=== PATIENT | female | born 1975 | race Caucasian/White ===

== ENCOUNTER 2020-08-13 07:13 | Outpatient (CLI) | payer OTHER, SELFPAY ==
[2020-08-13 07:49] LABS: Basophils Absolute Auto 0.1 K/mm3 (0.0-0.1); Eosinophils Absolute Auto 0.1 K/mm3 (0-0.3); Eosinophils Percent Auto 1.6 % (0-4.4); Hematocrit 36.8 % (37.0-47.0); Hemoglobin 12.1 g/dL (12.0-15.0); Immature Granulocyte Absolute 0.02 K/mm3 (0.00-0.031); Immature Granulocyte Percent A 0.3 % (0-0.5); Lymphocytes Absolute Auto 2.49 K/mm3 (0.9-3.2); Lymphocytes Percent Auto 31.2 % (18.3-44.2); Mean Corpuscular HGB Conc 32.9 g/dl (32-36); Mean Corpuscular Hemoglobin 31.1 pg (26-34); Mean Corpuscular Volume 94.6 fl (80-100); Mean Platelet Volume 9.2 fl (7.4-10.4); Monocytes Absolute Auto 0.5 K/mm3 (0.1-0.6); Monocytes Percent Auto 6.3 % (2.6-8.5); Neutrophils Absolute Auto 4.8 K/mm3 (1.3-6.7); Neutrophils Percent Auto 59.6 % (45.5-73.1); Platelet Count Result 383 k/mm3 (150-375); Red Blood Count 3.89 M/mm3 (4.2-5.4)
[2020-08-13 08:03] LABS: Alanine Aminotransferase 24 U/L (4-35); Albumin Level 4.6 g/dL (3.5-5.1); Alkaline Phosphatase 85 U/L (38-126); Anion Gap 8 mmol/L (8-16); Aspartate Amino Transferase 36 U/L (14-36); Bilirubin,Total 0.6 mg/dL (0.2-1.3); Blood Urea Nitrogen 21 mg/dL (7-17); Calcium 9.2 mg/dL (8.4-10.2); Carbon Dioxide 28 mmol/L (22-30); Chloride 101 mmol/L (98-107); Cholesterol 178 mg/dL (0-200); Estimated Glomerular Filt Rate > 60; Glucose 89 mg/dL (65-105); HDL Direct 66 mg/dL; Potassium 4.1 mmol/L (3.4-5.0); Sodium 137 mmol/L (137-145); Triglycerides 78 mg/dL (<150)
[2020-08-13 08:31] LABS: LDL Cholesterol Direct 87 mg/dL
[2020-08-13 09:41] LABS: Vitamin D 25 Hydroxy 44.3 ng/mL
== END 2020-08-13 07:14 | disposition home or self-care (01) ==
PROVIDERS: PCP Internal Medicine; Visit Provider Internal Medicine
DX: I10 Essential (primary) hypertension (principal); E78.49 Other hyperlipidemia; E53.8 Deficiency of other specified B group vitamins; D50.8 Other iron deficiency anemias
CPT/HCPCS: 36415; 80053; 80061; 82306; 82728; 84443; 85025

== ENCOUNTER 2021-05-04 15:08 | Outpatient (CLI) | payer OTHER, SELFPAY ==
--- NOTE | ~2021-05-04 | US_ITS ---
EXAMINATION: US pelvic complete w TV DATE: 05/04/2021 15:52 INDICATION: Pelvic pain Comparison:No prior studies for comparison. TECHNIQUE: Multiple transabdominal and endovaginal sonographic images of the pelvis performed. FINDINGS: The uterus measures 9 x 3.4 x 5.5 cm. There is an IUD in the endometrium. There is a small anterior uterine fibroid measuring 5 mm. The endometrial complex measures 6 mm. The right ovary measures 2.5 x 2 x 1.8 cm and the left ovary measures 2.6 x 2.1 x 1.8 cm. There are small follicles in each ovary. Normal doppler signal in both ovaries. There is trace free fluid in the pelvis. There are no abnormal masses seen on either side. IMPRESSION: 1. Small 5 mm uterine fibroid anteriorly. Reviewed, dictated and finalized at location A.
--- NOTE | ~2021-05-04 | MM_ITS ---
EXAMINATION: MM screening ana BI w [place] HISTORY: Screening mammogram, family history of breast cancer in her mother. TECHNIQUE: Craniocaudal and mediolateral oblique 3-D tomosynthesis images were obtained and synthetic 2-D images were generated. CAD analysis was submitted and interpreted. COMPARISON: No prior mammogram is available for comparison at this institution. BREAST PARENCHYMAL COMPOSITION: There are scattered areas of fibroglandular density. FINDINGS: There is no evidence of suspicious mass, calcification, or architectural distortion to sugg est malignancy in either breast. IMPRESSION: 1. No mammographic evidence of malignancy. 2. Recommend routine screening mammography in one year. BI-RADS Category 1: Negative Reviewed, dictated and finalized at location A.
== END 2021-05-04 15:09 | disposition home or self-care (01) ==
LOC: ANHIMG 15:09
PROVIDERS: PCP Internal Medicine; Visit Provider Obstetrics & Gynecology
DX: Z12.31 Encounter for screening mammogram for malignant neoplasm of breast (principal); R10.2 Pelvic and perineal pain; D25.9 Leiomyoma of uterus, unspecified
CPT/HCPCS: 76830; 76856; 77063; 77067

== ENCOUNTER 2021-06-02 10:20 | Outpatient (CLI) | payer OTHER, SELFPAY ==
--- NOTE | 2021-06-02 10:30 | ECG_ITS ---
Measurements Intervals [place] Rate: 77 P: 74 OR: 171 QRS: 77 QRSD: 83 T: 50 QT: 380 QTc: 431 Interpretive Statements SINUS RHYTHM POSSIBLE LEFT ATRIAL ENLARGEMENT DELAYED PRECORDIAL R/S TRANSITION BORDERLINE ECG Electronically Signed On 06-02-2021 12:00:44 CDT by Constantine Saavedra D.O.
== END 2021-06-02 10:21 | disposition home or self-care (01) ==
LOC: ANHSURGERY 10:26
PROVIDERS: PCP Internal Medicine; Visit Provider Obstetrics & Gynecology
DX: I10 Essential (primary) hypertension (principal); Z01.818 Encounter for other preprocedural examination; R94.31 Abnormal electrocardiogram [ECG] [EKG]
CPT/HCPCS: 93005

== ENCOUNTER → 2021-06-03 01:41 | Outpatient (CLI) | payer OTHER, SELFPAY ==
[2021-06-03 19:11] LABS: SARS-CoV-2 RNA PCR Negative
== END ==
PROVIDERS: PCP Internal Medicine; Visit Provider Obstetrics & Gynecology
DX: Z01.812 Encounter for preprocedural laboratory examination (principal); Z20.822 Contact with and (suspected) exposure to COVID-19
CPT/HCPCS: C9803; U0003; U0005

== ENCOUNTER 2021-06-06 01:43 | Day surgery (SDC) | payer OTHER, SELFPAY ==
[2021-06-01 14:21] VITALS: BMI 33.0
--- NOTE | 2021-06-03 16:22 | PM.IMHP ---
H&P: HPI History of Present Illness Date/Time: 06/03/21 16:22 She was taken off Q3 month cycling OCP due to HTN. She tried loloestrin and POP and had frequent irregular bleeding. She has occasional spotting with Mirena IUD but has cystic acne, and occasional BLQ sharp shooting pains. She is here for ablation and tubal ligation Chief Complaint: menorrhagia, desires sterilization Review of Systems Review of Systems: All systems reviewed & are unremarkable except as noted in HPI and below PMFSH Past Medical History Medical History Anemia Hypertension Migraines Seasonal allergies Surgical History Surgical History H/O Spinal surgery Family History Family History Father Hypertension Mother Breast cancer Hypertension Disorder of thyroid Sibling Heart disease Grandparent Breast cancer Social History Social History Smoking status: Never smoker Alcohol intake: current Substance use: never Gender identity (if verbalized by the patient): Female Spiritual care concerns: No Meds Home Medications and Allergies Home Medications Medication Instructions Recorded Confirmed Type amlodipine 2.5 mg tablet 2.5 mg PO DAILY 09/17/20 06/01/21 History dicyclomine 10 mg capsule 10 mg PO TID PRN #90 cap 09/17/20 06/01/21 Rx Saccharomyces boulardii 250 mg 250 mg PO BID 04/22/21 06/01/21 History capsule cetirizine 10 mg tablet 10 mg PO DAILY 04/22/21 06/01/21 History fluticasone furoate 50 50 mcg INHALATION DAILY 04/22/21 06/01/21 History mcg/actuation blister powder for inhalation levonorgestrel 20 mcg/24 hours (6 1 device INTRAUTERINE ONCE 04/22/21 06/01/21 History yrs) 52 mg intrauterine device multivitamin 1 tablet PO DAILY 04/22/21 06/01/21 History rizatriptan 5 mg tablet See Rx Instructions PO .COMPLEX 04/22/21 06/01/21 History escitalopram oxalate 10 mg PO DAILY 06/01/21 06/01/21 History Allergies Allergy/AdvReac Type Severity Reaction Status Date / Time No Known Allergies Allergy Verified 06/01/21 13:53 Exam Const: General: healthy appearing, no acute distress, alert and awake Resp: Auscultation: clear to auscultation bilaterally Cardio: Rate: regular rate Rhythm: regular rhythm GI: Inspection: non-distended GI Palp: Yes Soft to palpation and No Tenderness to palpation present (GI) : Speculum Exam - Cervix: Other cervical findings present (IUD string visible) Bimanual exam- vagina & uterus: normal bimanual exam, uterine size normal, uterine mobility normal, uterine shape normal, non-tender and soft Bimanual Exam- Adnexa, other: normal adnexae, no masses and No adnexal tenderness Extrem: General: no pedal edema and no calf tenderness Psych: Mental Status: mental status grossly normal Assessment and Plan Assessment and plan (1) Menorrhagia: Code(s): N92.0 - Excessive and frequent menstruation with regular cycle Status: Acute Assessment and Plan: She opted and signed consent for D&C, hysteroscopy, and endometrial ablation, removal of Mirena IUD, and laparoscopic bilateral tubal occlusion with Filshie clips after risks, benefits, complications, and alternatives discussed. She expressed understanding and wishes to proceed. (2) Contraceptive management: Code(s): Z30.9 - Encounter for contraceptive management, unspecified Status: Acute
[2021-06-06] VITALS (9 sets, daily range): BP systolic 101–141; BP diastolic 65–77; PULSE 67–86; RESP 12–18; TEMP 36.3–36.7; O2SAT 97–100
--- NOTE | 2021-06-06 07:28 | WPDANESEPPF ---
Anes - Initial Pre Proc Eval Procedure: Operation Date: 06/06/21 13:00 Proposed Procedures p Laparoscopic Bilateral Tubal Sterilization with Filshie Clips, - Cherri Smiely MD s Hysteroscopy, Dilation and Curettage with Maria L Endometrial Ablation - Cherri Smiley MD Date/Time: 06/06/21 07:28 Surgeon: Cherri Smiley MD Pre Op Diagnosis: menorrhaghia,desires sterilization Patient Data Age: 46 Gender: F Height: 1.57 m Weight: 81.81 kg Allergies Allergy/AdvReac Type Severity Reaction Status Date / Time No Known Allergies Allergy Verified 06/06/21 11:30 Home Medications Medication Instructions Recorded Confirmed Type amlodipine 2.5 mg tablet 2.5 mg PO DAILY 09/17/20 06/06/21 History dicyclomine 10 mg capsule 10 mg PO TID PRN #90 cap 09/17/20 06/06/21 Rx Saccharomyces boulardii 250 mg 250 mg PO BID 04/22/21 06/06/21 History capsule cetirizine 10 mg tablet 10 mg PO DAILY 04/22/21 06/06/21 History fluticasone furoate 50 50 mcg INHALATION DAILY 04/22/21 06/06/21 History mcg/actuation blister powder for inhalation levonorgestrel 20 mcg/24 hours (6 1 device INTRAUTERINE ONCE 04/22/21 06/06/21 History yrs) 52 mg intrauterine device multivitamin 1 tablet PO DAILY 04/22/21 06/06/21 History rizatriptan 5 mg tablet See Rx Instructions PO .COMPLEX 04/22/21 06/06/21 History escitalopram oxalate 10 mg PO DAILY 06/01/21 06/06/21 History Patient hx anesthesia problems: none Family hx anesthesia problems: none PMFSH Past Medical History Medical History (Updated 06/06/21 @ 07:29 by Carlos Gonzalez DO) Anemia Anxiety Depression Fibromyalgia Hypertension Migraines Seasonal allergies Surgical History Surgical History (Updated 06/06/21 @ 07:29 by Carlos Gonzalez DO) H/O Spinal surgery cervical fusion Family History Family History Father Hypertension Mother Breast cancer Hypertension Disorder of thyroid Sibling Heart disease Grandparent Breast cancer Social History Social History Smoking status: Never smoker Alcohol intake: current Substance use: never Living arrangements: with family Gender identity (if verbalized by the patient): Female Spiritual care concerns: No Anes - Eval Final PreProcedure Day of Procedure 06/06/21 07:28 Patient weight: obese Heart: regular rate and rhythm Lungs: clear to auscultation and normal air movement Airway: Mallampati scale class II and other (cervical fusion C5-7) Neurological: alert and oriented Last oral intake: >/= 8 hours ASA classification: III Emergent: no Anesthetic plan: proceed Anesthesia type and monitoring: general ETT and standard monitoring Informed Consent: The patient's anesthetic plan and its attendant risks and benefits were discussed with the patient/family/POA. Questions were solicited and answers provided to the satisfaction of the patient/family/POA.
[2021-06-06] MEDS: ACETAMINOPHEN 500 MG TABLET 1000 MG PO (11:34)
[2021-06-06] MEDS: KETOROLAC 15 MG/ML VIAL (*BKC) IV PUSH (11:41)
[2021-06-06] MEDS: LACTATED RINGERS 1,000 ML 30 ML IV CONT (11:41)
--- NOTE | 2021-06-06 12:08 | WPDHPUPDATE1 ---
History and Physical Update Update Date/Time: 06/06/21 12:08 History and Physical has been reviewed, including an updated exam of the patient. There are NO changes in the patient's condition. Risks, benefits, and alternatives have been discussed and questions answered. Patient agrees to proceed with procedure.
--- NOTE | 2021-06-06 12:54 | W.PM.PROC2 ---
Procedure Note - Detailed Date of Procedure 06/06/21 Pre-op Diagnosis menorrhagia,desires sterilization Post-op Diagnosis same Procedure Performed L/s bilateral tubal occlusion with Filshie clips, D&C, hysteroscopy, removal of Mirena IUD, Maria L endometrial ablation Surgeon Cherri Smiley MD Anesthesia general Indications Heavy irregular bleeding, desires sterilization Findings Normal uterus, tubes, ovaries, liver, appendix; normal endometrial cavity with excellent appearing ablation Description of Procedure She was taken to the operating room where general anesthesia was obtained. She was prepared and draped in the normal sterile fashion in the dorsal lithotomy position. Marcaine was injected infraumbilically. A 5 mm skin incision was made in the infraumbilical fold. A 5 mm non bladed trocar was placed with the camera in the trocar under direct visualization into the peritoneal cavity. Insufflation was begun. She was placed in Trendelenburg. An 8 mm incision was made in the midline suprapubic area. An 8 mm trocar was placed under direct visualization into the peritoneal cavity. Inspection of the abdomen and pelvis revealed the findings as noted. The right fallopian tube was identified. A Filshie clip was placed on the mid isthmic portion of the tube, making sure the entire circumference of the tube was contained in the clip. Same procedure was performed on the left fallopian tube. All operative sites were inspected and found to be hemostatic. The pneumoperitoneum was allowed to escape. Both trocars were removed. Both skin incisions were closed using 4 0 Monocryl in subcuticular fashion. Attention was then turned to the vagina. A speculum was placed. The anterior lip of the cervix was grasped with single-tooth tenaculum. The IUD string was easily visible. The string was grasped with a ring forceps. Gentle traction was applied, and the IUD was removed easily intact. The uterus sounded to 8 cm. The cervix was dilated to allow passage of the hysteroscope, which revealed normal intrauterine anatomy. A sharp curettage was performed and the curettings sent to pathology. A 8. Hegar dilator was used to measure the endocervical canal at 3 cm, yielding a entire cavity length of 5 cm. The Maria L device was introduced. The cavity assessment passed on the 1st attempt. The cycle ran for 2 minutes. The Maria L device was removed. A 2nd look was taken with the hysteroscope, which revealed an excellent appearing ablation. The hysteroscope was removed. The tenaculum was removed from the cervix. The left tenaculum site was bleeding slightly. Pressure was held with ring forceps until excellent hemostasis was assured. All instruments were removed from the vagina. She tolerated the procedures well. Sponge, lap, needle, and instrument counts were correct x2. She was taken to the recovery room in stable condition. Estimated Blood Loss 10 Drains No Packing No Pathology yes Complications No immediate complications Condition stable Disposition PACU
[2021-06-06] MEDS: BUPIVACAINE/EPINEPHRINE 0.5% 30 ML VIAL 4 ML INFILTRATE (13:55)
[2021-06-06] MEDS: fentaNYL CITRATE INJ (*CRX) 100 MCG/2 ML VIAL 25 MCG IV PUSH ×6 (14:15→14:53)
--- NOTE | 2021-06-06 14:34 | SUR.PHASEI ---
Simple mask removed at 1430.
[2021-06-06] MEDS: oxyCODONE HCL (*CRX) 5 MG TAB IR PO (15:15)
== END 2021-06-06 15:55 | disposition home or self-care (01) ==
PROVIDERS: PCP Internal Medicine; Visit Provider Obstetrics & Gynecology
PROC: (CPT 58671; principal; 2021-06-06 13:00)
PROC: 0U5B8ZZ Destruction of Endometrium, Via Natural or Artificial Opening Endoscopic (ICD-10-PCS; CPT 58563; 2021-06-06 13:00)
DX: N92.0 Excessive and frequent menstruation with regular cycle (principal); Z30.2 Encounter for sterilization; Z30.432 Encounter for removal of intrauterine contraceptive device; I10 Essential (primary) hypertension; F41.8 Other specified anxiety disorders; Z98.1 Arthrodesis status; E66.9 Obesity, unspecified; Z68.33 Body mass index [BMI] 33.0-33.9, adult
CPT/HCPCS: 58671; 58563; 58301; 88305; A9270; J1885; J2250; J2270; J2405; J2704; J3010; J7030; J7120

== ENCOUNTER 2021-09-19 11:46 | Outpatient (CLI) | payer OTHER, SELFPAY ==
[2021-09-19 12:17] LABS: Basophils Percent Auto 0.6 % (0.2-1.2); Eosinophils Absolute Auto 0.1 K/mm3 (0-0.3); Eosinophils Percent Auto 1.1 % (0-4.4); Hematocrit 34.7 % (37.0-47.0); Hemoglobin 11.5 g/dL (12.0-15.0); Immature Granulocyte Absolute 0.02 K/mm3 (0.00-0.031); Immature Granulocyte Percent A 0.3 % (0-0.5); Lymphocytes Percent Auto 29.8 % (18.3-44.2); Mean Corpuscular HGB Conc 33.1 g/dl (32-36); Mean Corpuscular Hemoglobin 31.5 pg (26-34); Mean Corpuscular Volume 95.1 fl (80-100); Mean Platelet Volume 8.8 fl (7.4-10.4); Monocytes Absolute Auto 0.4 K/mm3 (0.1-0.6); Neutrophils Absolute Auto 4.4 K/mm3 (1.3-6.7); Neutrophils Percent Auto 62.2 % (45.5-73.1); Platelet Count Result 347 k/mm3 (150-375); Red Blood Count 3.65 M/mm3 (4.2-5.4); Red Cell Distribution Width 12.1 % (11.5-14.5); White Blood Count 7.1 K/mm3 (4.5-10.0)
[2021-09-19 14:06] LABS: Alanine Aminotransferase 14 U/L (4-35); Albumin Level 4.5 g/dL (3.5-5.1); Alkaline Phosphatase 94 U/L (38-126); Anion Gap 7 mmol/L (8-16); Aspartate Amino Transferase 26 U/L (14-36); Bilirubin,Total 0.8 mg/dL (0.2-1.3); Blood Urea Nitrogen 16 mg/dL (7-17); Calcium 9.1 mg/dL (8.4-10.2); Carbon Dioxide 28 mmol/L (22-30); Chloride 103 mmol/L (98-107); Cholesterol 231 mg/dL (0-200); Estimated Glomerular Filt Rate > 60; Glucose 95 mg/dL (65-110); HDL Direct 74 mg/dL; Potassium 3.9 mmol/L (3.4-5.0); Sodium 138 mmol/L (137-145); Triglycerides 155 mg/dL (<150)
[2021-09-19 14:18] LABS: LDL Cholesterol Direct 126 mg/dL
== END 2021-09-19 11:47 | disposition home or self-care (01) ==
LOC: ANHLAB 11:50
PROVIDERS: PCP Internal Medicine; Visit Provider Internal Medicine
DX: I10 Essential (primary) hypertension (principal); E78.49 Other hyperlipidemia; D50.8 Other iron deficiency anemias
CPT/HCPCS: 36415; 80053; 80061; 82607; 82728; 84443; 85025

== ENCOUNTER 2022-08-09 10:29 | Outpatient (CLI) | payer OTHER, SELFPAY ==
[2022-08-09 11:10] LABS: Basophils Absolute Auto 0.1 K/mm3 (0.0-0.1); Basophils Percent Auto 0.7 % (0.2-1.2); Eosinophils Absolute Auto 0.1 K/mm3 (0-0.3); Eosinophils Percent Auto 0.7 % (0-4.4); Hematocrit 33.4 % (37.0-47.0); Hemoglobin 10.7 g/dL (12.0-15.0); Immature Granulocyte Absolute 0.02 K/mm3 (0.00-0.031); Immature Granulocyte Percent A 0.2 % (0-0.5); Lymphocytes Absolute Auto 2.55 K/mm3 (0.9-3.2); Lymphocytes Percent Auto 31.4 % (18.3-44.2); Mean Corpuscular Hemoglobin 30.1 pg (26-34); Mean Corpuscular Volume 93.8 fl (80-100); Mean Platelet Volume 8.8 fl (7.4-10.4); Monocytes Absolute Auto 0.5 K/mm3 (0.1-0.6); Monocytes Percent Auto 5.8 % (2.6-8.5); Neutrophils Percent Auto 61.2 % (45.5-73.1); Platelet Count Result 348 k/mm3 (150-375); Red Blood Count 3.56 M/mm3 (4.2-5.4); Red Cell Distribution Width 12.6 % (11.5-14.5); White Blood Count 8.1 K/mm3 (4.5-10.0)
[2022-08-09 11:22] LABS: Alanine Aminotransferase 14 U/L (6-35); Albumin Level 4.4 g/dL (3.5-5.1); Alkaline Phosphatase 96 U/L (38-126); Anion Gap 10 mmol/L (8-16); Aspartate Amino Transferase 23 U/L (14-36); Bilirubin,Total 0.5 mg/dL (0.2-1.3); Blood Urea Nitrogen 14 mg/dL (7-17); Calcium 8.8 mg/dL (8.4-10.2); Carbon Dioxide 24 mmol/L (22-30); Chloride 103 mmol/L (98-107); Estimated Glomerular Filt Rate > 60; Glucose 92 mg/dL (65-110); Potassium 3.9 mmol/L (3.4-5.0); Sodium 137 mmol/L (137-145)
[2022-08-10 14:22] LABS: Cholesterol 184 mg/dL (0-200); HDL Direct 50 mg/dL; Triglycerides 159 mg/dL (<150)
[2022-08-10 14:31] LABS: LDL Cholesterol Direct 109 mg/dL
== END 2022-08-09 10:30 | disposition home or self-care (01) ==
LOC: ANHLAB 10:33
PROVIDERS: PCP Internal Medicine; Visit Provider Internal Medicine
DX: D50.8 Other iron deficiency anemias (principal); E78.49 Other hyperlipidemia
CPT/HCPCS: 36415; 80053; 80061; 82607; 82728; 84443; 85025

== ENCOUNTER 2023-06-14 06:57 | Outpatient (CLI) | payer OTHER, SELFPAY ==
[2023-06-14 07:23] LABS: Basophils Absolute Auto 0.1 K/mm3 (0.0-0.1); Basophils Percent Auto 0.9 % (0.2-1.2); Eosinophils Absolute Auto 0.1 K/mm3 (0-0.3); Eosinophils Percent Auto 1.1 % (0-4.4); Hematocrit 34.8 % (37.0-47.0); Hemoglobin 11.2 g/dL (12.0-15.0); Immature Granulocyte Absolute 0.03 K/mm3 (0.00-0.031); Immature Granulocyte Percent A 0.3 % (0-0.5); Lymphocytes Absolute Auto 2.81 K/mm3 (0.9-3.2); Lymphocytes Percent Auto 31.2 % (18.3-44.2); Mean Corpuscular HGB Conc 32.2 g/dl (32-36); Mean Corpuscular Hemoglobin 29.9 pg (26-34); Mean Platelet Volume 8.8 fl (7.4-10.4); Monocytes Absolute Auto 0.6 K/mm3 (0.1-0.6); Monocytes Percent Auto 6.1 % (2.6-8.5); Neutrophils Absolute Auto 5.4 K/mm3 (1.3-6.7); Neutrophils Percent Auto 60.4 % (45.5-73.1); Platelet Count Result 386 k/mm3 (150-375); Red Blood Count 3.74 M/mm3 (4.2-5.4); Red Cell Distribution Width 12.7 % (11.5-14.5)
[2023-06-14 07:36] LABS: Alanine Aminotransferase 17 U/L (6-35); Albumin Level 4.4 g/dL (3.5-5.1); Alkaline Phosphatase 75 U/L (38-126); Anion Gap 10 mmol/L (8-16); Aspartate Amino Transferase 24 U/L (14-36); Bilirubin,Total 0.4 mg/dL (0.2-1.3); Blood Urea Nitrogen 19 mg/dL (7-17); Calcium 9.4 mg/dL (8.4-10.2); Carbon Dioxide 28 mmol/L (22-30); Chloride 100 mmol/L (98-107); Cholesterol 209 mg/dL (0-200); Estimated Glomerular Filt Rate > 60; Glucose 90 mg/dL (65-110); HDL Direct 58 mg/dL; Potassium 4.1 mmol/L (3.4-5.0); Sodium 138 mmol/L (137-145); Triglycerides 152 mg/dL (<150)
[2023-06-14 07:43] LABS: LDL Cholesterol Direct 115 mg/dL
[2023-06-14 09:06] LABS: Free T4 Free Thyroxine Reflex 1.12 ng/dL (0.78-2.19)
[2023-06-14 14:27] LABS: Total Triiodothyronine (T3) 1.96 NG/ML (0.97-1.69)
== END 2023-06-14 06:58 | disposition home or self-care (01) ==
PROVIDERS: PCP Internal Medicine
DX: E78.49 Other hyperlipidemia (principal)
CPT/HCPCS: 36415; 80053; 80061; 84439; 84443; 84480; 85025

== ENCOUNTER 2023-06-27 06:57 | Outpatient (CLI) | payer OTHER, SELFPAY ==
--- NOTE | ~2023-06-27 | MR_ITS ---
MRI of the lumbar spine Clinical History: Radiculopathy Technique: Axial T2-weighted images, and sagittal T1-weighted, T2-weighted, and and T2 fat-sat images were acquired. Findings: There is no fracture or subluxation of the lumbar spine. Vertebral bodies maintain normal h eight and alignment. No suspicious bone marrow signal reality seen. At L1-L2, L2-L3, L3-L4, there are mild to moderate facet joint degenerative changes. No disc bulge or herniation T levels. No spinal canal stenosis or neural foraminal narrowing at these levels. At L4-L5, there is minimal disc bulge with moderate to advanced facet arthropathy. No central canal s tenosis or neural foraminal narrowing. At L5-S1, there is minimal disc bulge with moderate to advanced facet arthropathy. No spinal canal st enosis or neural foraminal narrowing. Paravertebral soft tissues are unremarkable. Impression: Minimal degenerative change, as above. Reviewed, dictated and finalized at location . Impression: Minimal degenerative change, as above.
== END 2023-06-27 06:58 | disposition home or self-care (01) ==
PROVIDERS: PCP Internal Medicine; Visit Provider Internal Medicine
DX: M54.16 Radiculopathy, lumbar region (principal)
CPT/HCPCS: 72148

== ENCOUNTER 2023-12-13 00:40 | Day surgery (SDC) | payer OTHER, SELFPAY ==
[2023-11-14 14:09] VITALS: BMI 33.0
--- NOTE | 2023-12-11 11:01 | SUR.PREOP ---
Patient called regarding upcoming procedure. Reviewed preop instructions, new appointment times, and procedure prep.
[2023-12-13 07:43] VITALS: BP 114/71; PULSE 93; RESP 16; TEMP 36.2; O2SAT 100
[2023-12-13] MEDS: LACTATED RINGERS 1,000 ML 150 ML IV CONT (07:51)
--- NOTE | 2023-12-13 08:12 | WPDANESEPPF ---
Anes - Initial Pre Proc Eval Procedure: Operation Date: 12/13/23 09:00 Proposed Procedures p Esophagogastroduodenoscopy & Screening Colonoscopy - Anderson Mcallister MD Date/Time: 12/13/23 08:12 Surgeon: Anderson Mcallister MD Pre Op Diagnosis: neoplasm screening,GERD Patient Data Age: 48 Gender: F Height: 1.57 m Weight: 82.5 kg Last Vital Signs Temp 97.1 F L 12/13/23 07:43 Pulse 93 12/13/23 07:43 Resp 16 12/13/23 07:43 BP 114/71 12/13/23 07:43 Pulse Ox 100 12/13/23 07:43 O2 Del Method Room Air 12/13/23 07:43 Allergies Allergy/AdvReac Type Severity Reaction Status Date / Time No Known Allergies Allergy Verified 12/13/23 07:42 Home Medications Medication Instructions Recorded Confirmed Type amlodipine 2.5 mg tablet 2.5 mg PO DAILY 09/17/20 11/14/23 History dicyclomine 10 mg capsule 10 mg PO TID PRN IBS #90 caps 09/17/20 11/14/23 Rx Saccharomyces boulardii 250 mg 250 mg PO DAILY 04/22/21 11/14/23 History capsule (Daily Probiotic (S. boulardii)) cetirizine 10 mg tablet 10 mg PO DAILY 04/22/21 11/14/23 History multivitamin 1 tablet PO DAILY 04/22/21 11/14/23 History rizatriptan 5 mg tablet See Rx Instructions PO .COMPLEX 04/22/21 11/14/23 History escitalopram oxalate 10 mg tablet 10 mg PO DAILY 06/01/21 11/14/23 History celecoxib 200 mg capsule 200 mg PO BID 11/14/23 11/14/23 History Patient hx anesthesia problems: none Family hx anesthesia problems: none Results Review: All pre-operative results and documents have been reviewed as part of the pre-operative evaluation. [facility] Past Medical History Medical History Anemia Anxiety Depression Fibromyalgia Hypertension Migraines Seasonal allergies Surgical History Surgical History H/O Spinal surgery cervical fusion Family History Family History Father Hypertension Mother Breast cancer Hypertension Disorder of thyroid Sibling Heart disease Grandparent Breast cancer Social History Social History Smoking status: Never smoker Alcohol intake: current Alcohol use details: occasional use Substance use: never Substance use type: does not use Living arrangements: with family Occupation/Education: occupation Gender identity (if verbalized by the patient): Female Spiritual care concerns: No Anes - Eval Final PreProcedure Day of Procedure 12/13/23 08:12 Patient weight: obese Heart: regular rate and rhythm Lungs: clear to auscultation Airway: Mallampati scale class II Neurological: alert and oriented Last oral intake: >/= 8 hours ASA classification: II Emergent: no Anesthetic plan: proceed Anesthesia type and monitoring: general GIVS and standard monitoring Results Review: All pre-operative results and documents have been reviewed as part of the pre-operative evaluation. Informed Consent: The patient's anesthetic plan and its attendant risks and benefits were discussed with the patient/family/POA. Questions were solicited and answers provided to the satisfaction of the patient/family/POA.
--- NOTE | 2023-12-13 08:16 | PM.HPGS ---
History of Present Illness History of Present Illness Consent: Risks, benefits, and alternatives have been discussed and questions answered. Patient agrees to proceed with procedure. Chief complaint: neoplasm screening,GERD Narrative: Noreen Pastor is a 48 year old female with history of IBS and intermittent epigastric pain, never had egd. Also needs screening colonoscopy. Review of Systems Constitutional: Constitutional: Denies headache(s) and Denies weakness Eyes: Eyes: Denies blurry vision ENT: Reports Normal hearing present, Denies headache(s) and Denies neck pain Cardiovascular: Cardiovascular: Denies chest pain and Denies dyspnea Respiratory: Respiratory: Denies dyspnea Gastrointestinal: Gastrointestinal: Reports no additional gastrointestinal complaints Genitourinary: Genitourinary: Denies dysuria Musculoskeletal: Musculoskeletal: Denies neck pain Integumentary/Breasts: Skin/Breast: Denies dry skin Neurologic: Reports Normal hearing present, Denies headache(s) and Denies weakness Psychiatric: Psychiatric: Denies anxiety Endocrine: Endocrine: Denies change in body appearance Hematologic/Lymphatic: Hematologic/Lymphatic: Denies easy bleeding Allergic/Immunologic: Allergic/Immunologic: Denies urticaria PMFSH Past Medical History Medical History (Updated 12/13/23 @ 08:17 by Anderson Mcallister MD) Anemia Anxiety Colon cancer screening Depression Epigastric pain Fibromyalgia Hypertension IBS (irritable bowel syndrome) Migraines Seasonal allergies Surgical History Surgical History H/O Spinal surgery cervical fusion Family History Family History Father Hypertension Mother Breast cancer Hypertension Disorder of thyroid Sibling Heart disease Grandparent Breast cancer Social History Social History Smoking status: Never smoker Alcohol intake: current Alcohol use details: occasional use Substance use: never Substance use type: does not use Living arrangements: with family Occupation/Education: occupation Gender identity (if verbalized by the patient): Female Spiritual care concerns: No Meds Home Medications and Allergies Home Medications Medication Instructions Recorded Confirmed Type amlodipine 2.5 mg tablet 2.5 mg PO DAILY 09/17/20 11/14/23 History dicyclomine 10 mg capsule 10 mg PO TID PRN IBS #90 caps 09/17/20 11/14/23 Rx Saccharomyces boulardii 250 mg 250 mg PO DAILY 04/22/21 11/14/23 History capsule (Daily Probiotic (S. boulardii)) cetirizine 10 mg tablet 10 mg PO DAILY 04/22/21 11/14/23 History multivitamin 1 tablet PO DAILY 04/22/21 11/14/23 History rizatriptan 5 mg tablet See Rx Instructions PO .COMPLEX 04/22/21 11/14/23 History escitalopram oxalate 10 mg tablet 10 mg PO DAILY 06/01/21 11/14/23 History celecoxib 200 mg capsule 200 mg PO BID 11/14/23 11/14/23 History Allergies Allergy/AdvReac Type Severity Reaction Status Date / Time No Known Allergies Allergy Verified 12/13/23 07:42 Vital Signs Vital Signs - 24 hr 12/13/23 07:43 Temperature 97.1 F L Pulse Rate 93 Respiratory Rate 16 Blood Pressure 114/71 Pulse Oximetry 100 Oxygen Delivery Room Air Exam Const: General: comfortable and no acute distress HENMT: Face/Nose/Sinus: Normal nares present Eyes: General: appearance normal, both eyes and all related structures Neck: Neck: no JVD Resp: Auscultation: clear to auscultation bilaterally Cardio: Rate: regular rate Rhythm: regular rhythm GI: Inspection: non-distended GI Palp: Yes Soft to palpation Skin: General skin exam: normal color Neuro: General: gait normal Speech: normal speech Extrem: General: normal to inspection Psych: Mental Status: mental status grossly normal Assessment and Plan A
--- NOTE | 2023-12-13 08:42 | SUR.OPER ---
EGD START: 824; END: 828. COLONOSCOPY START: 837; END: 842.
[2023-12-13 08:51] VITALS: BP 93/69; PULSE 82; RESP 12; O2SAT 100
[2023-12-13 09:01] VITALS: BP 103/74; PULSE 85; RESP 25; O2SAT 100
[2023-12-13 09:11] VITALS: BP 111/67; PULSE 79; RESP 15; O2SAT 100
== END 2023-12-13 09:20 | disposition home or self-care (01) ==
PROVIDERS: PCP Internal Medicine; Visit Provider Internal Medicine Gastroenterology
PROC: 0DJ08ZZ Inspection of Upper Intestinal Tract, Via Natural or Artificial Opening Endoscopic (ICD-10-PCS; CPT 43235; principal; 2023-12-13 09:00)
DX: Z12.11 Encounter for screening for malignant neoplasm of colon (principal); K64.8 Other hemorrhoids; K29.50 Unspecified chronic gastritis without bleeding; K58.9 Irritable bowel syndrome, unspecified; I10 Essential (primary) hypertension; D64.9 Anemia, unspecified; F41.9 Anxiety disorder, unspecified; F32.A Depression, unspecified; Z98.1 Arthrodesis status; E66.9 Obesity, unspecified; Z68.33 Body mass index [BMI] 33.0-33.9, adult
CPT/HCPCS: 45378; 43239; 88305; J2001; J2704; J7120

== ENCOUNTER 2024-06-11 10:57 | Outpatient (CLI) | payer OTHER, SELFPAY ==
[2024-06-11 11:19] LABS: Basophils Absolute Auto 0.1 K/mm3 (0.0-0.1); Eosinophils Absolute Auto 0.1 K/mm3 (0-0.3); Eosinophils Percent Auto 1.3 % (0-4.4); Immature Granulocyte Absolute 0.03 K/mm3 (0.00-0.031); Immature Granulocyte Percent A 0.4 % (0-0.5); Lymphocytes Absolute Auto 2.81 K/mm3 (0.9-3.2); Lymphocytes Percent Auto 40.1 % (18.3-44.2); Mean Corpuscular HGB Conc 32.4 g/dl (32-36); Mean Corpuscular Hemoglobin 30.3 pg (26-34); Mean Corpuscular Volume 93.7 fl (80-100); Mean Platelet Volume 8.7 fl (7.4-10.4); Monocytes Absolute Auto 0.4 K/mm3 (0.1-0.6); Monocytes Percent Auto 5.8 % (2.6-8.5); Neutrophils Absolute Auto 3.6 K/mm3 (1.3-6.7); Neutrophils Percent Auto 51.4 % (45.5-73.1); Platelet Count Result 349 k/mm3 (150-375); Red Blood Count 3.63 M/mm3 (4.2-5.4); Red Cell Distribution Width 12.3 % (11.5-14.5)
[2024-06-11 11:45] LABS: Alanine Aminotransferase 13 U/L (6-35); Albumin Level 4.6 g/dL (3.5-5.1); Alkaline Phosphatase 72 U/L (38-126); Anion Gap 12 mmol/L (4-12); Aspartate Amino Transferase 25 U/L (14-36); Bilirubin,Total 0.5 mg/dL (0.2-1.3); Blood Urea Nitrogen 21 mg/dL (7-17); Calcium 9.1 mg/dL (8.4-10.2); Carbon Dioxide 24 mmol/L (22-30); Chloride 101 mmol/L (98-107); Cholesterol 200 mg/dL (0-200); Estimated Glomerular Filt Rate > 60; Glucose 89 mg/dL (65-110); HDL Direct 62 mg/dL; Potassium 3.9 mmol/L (3.4-5.0); Sodium 137 mmol/L (137-145); Triglycerides 219 mg/dL (<150)
[2024-06-11 11:57] LABS: LDL Cholesterol Direct 107 mg/dL
== END 2024-06-11 10:58 | disposition home or self-care (01) ==
LOC: ANHLAB 11:00
PROVIDERS: PCP Internal Medicine; Visit Provider Internal Medicine
DX: E53.8 Deficiency of other specified B group vitamins (principal); E78.49 Other hyperlipidemia
CPT/HCPCS: 36415; 80053; 80061; 82607; 84443; 85025

== ENCOUNTER 2024-07-24 08:29 | Outpatient (CLI) | payer OTHER, SELFPAY ==
--- NOTE | ~2024-07-24 | MM_ITS ---
EXAMINATION: MM screening ana BI w [place] HISTORY: Screening TECHNIQUE: Craniocaudal and mediolateral oblique 3-D tomosynthesis images were obtained and synthetic 2-D images were generated. CAD analysis was submitted and interpreted. COMPARISON: 05/04/2021 BREAST PARENCHYMAL COMPOSITION: There are scattered areas of fibroglandular density. FINDINGS: There is no evidence of suspicious mass, calcification, or architectural distortion to sugg est malignancy in either breast. There has been no suspicious interval change. IMPRESSION: 1. No mammographic evidence of malignancy. 2. Recommend routine screening mammography in one year. BI-RADS Category 1: Negative Reviewed, dictated and finalized at location B.
== END 2024-07-24 08:30 | disposition home or self-care (01) ==
PROVIDERS: PCP Internal Medicine; Visit Provider Obstetrics & Gynecology Gynecology
DX: Z12.31 Encounter for screening mammogram for malignant neoplasm of breast (principal)
CPT/HCPCS: 77063; 77067

== ENCOUNTER 2025-02-01 14:57 | Emergency (ER) | payer OTHER, SELFPAY ==
--- NOTE | ~2025-02-01 | XR_ITS ---
EXAM: XR ankle RT min 3V DATE: 02/01/2025 15:38 HISTORY: inversion injury,swelling bruising, LAT . COMPARISON: None available. FINDINGS: Normal mineralization. No fracture or dislocation. No lytic or blastic lesion. Mild scatte red degenerative changes. No erosion or periosteal change. Anterolateral ankle soft tissue swelling. IMPRESSION: No acute osseous finding in the right ankle. Reviewed, dictated and finalized at location K.
--- OUTSIDE RECORDS SUMMARY | 2025-02-01 14:59 | XMS_ITS | Encounter Summary ---
Author Organization [facility] Address 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 CHIEF COMPLAINT Seen as a new patient to get established with the practice. Patient complains of migraine headache. HISTORY: HISTORY: 784.0-HEADACHE over a week severe sharp bilateral frontal headaches, worse x 1 week has had in past, with slight nause, visual aura, slight relief with imitrex. exedrin, had nose bleed from nsaids? 309.81-ADJUSTMENT REACTION under 10/10 stress with filing for debt consolidation, pt having difficulty coping ROS: GENERAL: Normal activity and energy level, no change in appetite. No major weight gain or loss. No malaise, chills, fever, diaphoresis. ALLERGIC/IMMUNOLOGIC: No hay fever or history of environmental allergies. No chronic problems with immunity. EYES: . blurred vision ENT: HAS NOSE BLEEDS. ENDOCRINE: No heat or cold intolerance, no excessive thirst. CARDIAC: No chest pain, palpitations, orthopnea, dyspnea on exertion, or paroxysmal nocturnal dyspnea. RESPIRATORY: No dyspnea, cough, hemoptysis or wheezing. SKIN/BREAST/CHEST: No rashes or non-healing lesions. No breast symptoms noted. HEMATOLOGIC/LYMPHATIC: No anemia, easy bruising, bleeding or swollen nodes. : No frequency, urgency, hematuria or dysuria. GI: No abdominal pain, nausea, vomiting, diarrhea, constipation, melena, or hematochezia. NEUROLOGIC: HAS HEADACHES. MUSCULOSKELETAL: No muscle or joint pain, weakness, swelling or inflammation. No restriction of motion, no atrophy or backache. PSYCHIATRIC: HAS SLEEP DISTURBANCES, NOTES INCREASED STRESS. PAST MEDICAL HISTORY: MEDICAL: Migraine headaches. blood clots ligs SURGICAL: No previous surgery. CURRENT MEDICATIONS: Imitrex ALLERGIES/ADVERSE REACTIONS: No known drug allergies. FAMILY HISTORY: FATHER: The father is living. Illnesses: Hypercholesterolemia. MOTHER: The mother is living. Illnesses: Cancer of the breast, hypertension. SIBLINGS: 1) The patient's sister is living. Illnesses: Hypertension. SOCIAL HISTORY: MARITAL HISTORY: , living with spouse. LIVING WILL: The patient does not have a living will. TOBACCO USE: Has no significant smoking history. DISCUSSED SMOKING: neg. OCCUPATION: . med care manager [employer] ALCOHOL: Does not give any significant history of alcohol usage. CAFFEINE: A minimal amount of caffeinated beverages daily. EXERCISES: The patient exercises. The exercise is predominantly walking. DIET: Follows no specific diet. PHYSICAL EXAMINATION: CONSTITUTIONAL: GENERAL APPEARANCE: Healthy appearing patient in no distress. EYES: PUPILS: Pupils equal and normally reactive to light and accommodation. FUNDUSCOPIC EXAM: Ophthalmoscopic examination shows the fundi to be normal. The optic disc are flatand of normal size. There are no hemorrhages or exudates. NECK/THYROID: Trachea midline. No thyroid enlargement, tenderness, or mass. No supraclavicular or cervical adenopathy. RESPIRATORY: Clear to auscultation and percussion. Normal respiratory effort. CARDIOVASCULAR: CARDIAC: Regular rhythm. No murmurs, rubs, or gallops. ARTERIAL: No aortic bruits. EDEMA/VARICOSITIES OF EXTREMITIES: No edema or varicosities. GASTROINTESTINAL: ABDOMEN: Soft, non-tender, without masses. Bowel sounds active. LIVER/SPLEEN/KIDNEY: No hepatosplenomegaly, tenderness or nodularity. Kidneys not palpable. PSYCHIATRIC: CRIED DURING THE EXAM. ASSESSMENT/PLAN: 309.81-ADJUSTMENT REACTION discussed, enc exercise, reassess MEDICATIONS: ALPRAZOLAM ORAL TABLET 0.25 MG, 1 Two Times A Day, As Needed, 40 Dispensed, status: NEW PRESCRIPTION, 02/05/2008. ramírez to take if driving or at work EFFEXOR XR ORAL CAPSULE 24 HR 37.5 MG, 1 Every Day, 30 Dispensed, status: NEW PRESCRIPTION, 02/05/2008. 784.0-HEADACHE rx reassess MEDICATIONS: MAXALT ORAL TABLET 10 MG, 1 Two Times A Day, As Needed, 10 Dispensed, status: NEW PRESCRIPTION, 02/05/2008. HEALTH MAINTENANCE: LAST PAP DATE: 01/24cr Angel. PREVENTIVE COUNSELING The patient was counseled regarding diet, regular sustained exercise for at least 30 minutes 3-4 times per week. REQUESTING OLD RECORDS: . lab compas Patient Education: Risks, benefits, and possible side effects of medication(s) were reviewed with the patient. The patient was allowed to ask questions to stated satisfaction. RETURN VISIT : Patient instructed to return in 1 month. Electronically Signed by: Eber Pinedo MD on Tuesday, February 05, 2008 documented in this encounter Plan of Treatment Upcoming Encounters Date Type Department Care Team (Late st Contact Info) Description 09/24/2025 4:20 PM FURNITURE FINISHER Office Visit [facility] Primary [facility] [id number] [place] [address] Eber Pinedo MD [address] [place] [address] [address] [place] [address] documented as of this encounter Visit Diagnoses Not on filedocumented in this encounter Care Teams Compliance Coordinator Relationship Specialty Start Date End Date Eber Pinedo MD PCP - General 03/11/08 documented as of this encounter
--- OUTSIDE RECORDS SUMMARY | 2025-02-01 14:59 | XMS_ITS | Clinical Summary ---
Author Organization [facility] Address [address] [place] [address] Phone Care Team Providers Care Photofinishing Laboratory Worker Name Role Phone Eber Pinedo MD Primary Care Provider [phone] Family History Medical History Relation Name Comments Breast Cancer Maternal Aunt Breast Cancer Mother Breast Cancer Paternal Grandmother Relation Name Status Comments Maternal Aunt Mother Paternal Grandmother Social History Tobacco Use Types Packs/Day Years Used Date Smoking Tobacco: Never Assessed Comments No Sex and Gender Information Value Date Recorded Sex Assigned at Not on file Legal Sex Female 9:37 PM CDT Gender Identity Not on file Sexual Orientation Not on file Plan of Treatment Health Maintenance Due Date Last Done Comments Hepatitis C Virus (HCV) Screening 1975 TdaP Immunization 1975 Hepatitis B Immunization (1 of 3 - 19+ 3-dose series) 02/21/1995 Pap Smear 02/21/1997 Cervical Cancer Screening (CCS) 02/21/2006 HPV/Cotest 02/21/2006 Mammogram 09/19/2018 09/19/2016 Colonoscopy 02/21/2021 Colorectal Cancer Screening 02/21/2021 Influenza Immunization (#1) 2024 SARS-COV-2 Immunization ( season) 2024 Respiratory Syncytial Virus (RSV) Immunization (Adult) (1 - 1-dose 75+ series) 02/21/2051 Discussion re Starting/Frequ ency of Mammograms Completed 09/19/2016 Meningococcal Immunization (ACWY) Aged Out No longer eligible based on patient's age to complete this topic Pneumococcal Immunization Combined Aged Out No longer eligible based on patient's age to complete this topic Rotavirus Immunization Aged Out No lo nger eligible based on patient's age to complete this topic Procedures Procedure Name Priority Date/Time Associated Diagnosis Comments SORIN SCREENING BILATERAL DIGITAL W CAD Routine 09/19/2016 4:58 PM CDT Encounter for screening mammogram for malignant neoplasm of breast from Last 3 Months or Most Recently Relevant to Health Maintenance Results * SORIN SCREENING BILATERAL DIGITAL W CAD (09/19/2016 4:58 PM CDT) Anatomical Region Laterality Modality breast Bilateral Mammography 09/19/2016 4:41 PM CDT Narrative 09/21/2016 7:03 AM CDT - SORIN SCREENING BILATERAL DIGITAL W CAD BILATERAL DIGITAL SCREENING MAMMOGRAM WITH CAD WITH MEDIOLATERAL OBLIQUE CRANIOCAUDAL: 09/19/2016 The study was acquired using digital technology and interpreted from soft copy. Current study was also evaluated with [employer] version 7.2. CLINICAL: Routine screening. Patient has no complaints. No personal history of cancer. Mother with pre-menopausal breast cancer. Maternal aunt had pre-menopausal breast cancer. Paternal grandmother had breast cancer. COMPARISONS: Comparison is made to exams dated: 08/24/2014 and 07/30/2013 [facility]. BREAST TISSUE:The tissue of both breasts is heterogeneously dense. This may lower the sensitivity of mammography. FINDINGS: No significant masses, calcifications, or other findings are seen in either breast. There has been no significant interval change. IMPRESSION: BI-RAD 1 NEGATIVE There is no mammographic evidence of malignancy. A 1 year screening mammogram is recommended. The patient has been or will be contacted. The patient will be entered into a reminder system with a target due date of 1 year for her next screening exam. Electronically signed by: Roosevelt vazquez/[email or web address]:09/20/2016 17:00:40 Manager Administrative: Olivia Martinez (To), [facility] letter sent: Normal Exam Reading location: [facility] BI-RADS: 1 Negative Procedure Note Roosevelt Paiz MD - 09/21/2016 - SORIN SCREENING BILATERAL DIGITAL W CAD BILATERAL DIGITAL SCREENING MAMMOGRAM WITH CAD WITH MEDIOLATERAL OBLIQUE CRANIOCAUDAL: 09/19/2016 The study was acquired using digital technology and interpreted from soft copy. Current study was also evaluated with [employer] version 7.2. CLINICAL: Routine screening. Patient has no complaints. No personal history of cancer. Mother with pre-menopausal breast cancer. Maternal aunt had pre-menopausal breast cancer. Paternal grandmother had breast cancer. COMPARISONS: Comparison is made to exams dated: 08/24/2014 and 07/30/2013 [facility]. BREAST TISSUE:The tissue of both breasts is heterogeneously dense. This may lower the sensitivity of mammography. FINDINGS: No significant masses, calcifications, or other findings are seen in either breast. There has been no significant interval change. IMPRESSION: BI-RAD 1 NEGATIVE There is no mammographic evidence of malignancy. A 1 year screening mammogram is recommended. The patient has been or will be contacted. The patient will be entered into a reminder system with a target due date of 1 year for her next screening exam. Electronically signed by: Roosevelt [email or web address]/penlisa:09/20/2016 17:00:40 Manager Administrative: Olivia Martinez (To), [facility] letter sent: Normal Exam Reading location: [facility] BI-RADS: 1 Negative us Aleena Angel MD IMG MAMMO ORDERABLES Final Re sult from Last 3 Months or Most Recently Relevant to Health Maintenance Insurance [facility] Care Teams Photofinishing Laboratory Worker Relationship Specialty Start Date End Date Eber Pinedo MD [address] [place] [phone] PCP - General 08/24/16
--- OUTSIDE RECORDS SUMMARY | 2025-02-01 14:59 | XMS_ITS | Encounter Summary ---
Author Organization [facility] Address 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 Gender Identity Not on file Sexual Orientation Not on file documented as of this encounter Plan of Treatment Upcoming Encounters Date Type Department Care Team (Late st Contact Info) Description 09/24/2025 4:20 PM FOUR SLIDE MACHINE OPERATOR Office Visit [facility] Primary Care [address] [place] [address] Eber Pinedo MD [address] [place] [address] [address] [place] [address] documented as of this encounter Visit Diagnoses Not on filedocumented in this encounter Care Teams Construction Crew Member Relationship Specialty Start Date End Date Eber Pinedo MD PCP - General 03/11/08 documented as of this encounter
--- OUTSIDE RECORDS SUMMARY | 2025-02-01 14:59 | XMS_ITS | Clinical Summary ---
Author Organization [facility] Address [address] [place] [address] Care Team Providers Care Warp Hanger Name Role Phone Eber Pinedo MD Primary Care Provider [phone] Allergies Active Allergy Reactions Criticality Noted Date Comments Bupropion Hcl Other (See Comments) 04/03/2022 Headache, bad dreams No Known Allergies 02/05/2008 Topiramate Other (See Comments) 04/03/2022 Loss of taste Medications cetirizine (ZYRTEC) 10 mg Oral tablet Take 10 mg by mouth daily. Active cyanocobalamin 1,000 mcg Tablet Take 1,000 mcg by mouth daily. Active multivitamin (DAILY-GLORIA) tablet Take 1 Tablet by mouth daily. Active cyclobenzaprin e (FLEXERIL) 10 mg tablet Take 1 Tablet (10 mg) by mouth 2 times daily as needed for Spasm. 30 Tablet 1 09/11/20 19 Active diclofenac sodium EC (VOLTAREN) 25 mg Tablet, Delayed Release (E.C.) Take 1 tablet by mouth twice daily 60 Tablet 09/02/20 20 Active FIBER CHOICE, INULIN, ORAL 12/30/19 22 Active rimegepant (Nurtec ODT) 75 mg Tablet, Rapid Dissolve Take 1 Tablet (75 mg) by mouth 1 time daily as needed (migraine). 8 Tablet 1 06/20/20 23 Active Additional Information Patient not taking.Reported on 12/25/2024 amoxicillin (AMOXIL) 875 mg tablet Take 1 Tablet (875 mg) by mouth every 12 hours. 20 Tablet 07/24/20 23 Active Additional Information Patient not taking.Reported on 12/25/2024 dicyclomine (BENTYL) 10 mg capsule Take 10 mg by mouth 1 time daily as needed. 12/18/19 24 Active omeprazole (PriLOSEC) 40 mg Capsule, Delayed Release(E.C.) Take 1 Capsule by mouth daily. 01/14/20 24 Active rizatriptan (MAXALT CLASSIFIED ADVERTISING CLERK) 10 mg Tablet, Rapid Dissolve Take 1 Tablet (10 mg) by mouth every 2 hours as needed for Migraine. may repeat in 2 hours; max dose 30mg in 24 hours 15 Tablet 5 03/20/20 24 Active pregabalin (LYRICA) 50 mg Capsule TAKE 1 CAPSULE BY MOUTH EVERY 12 HOURS 60 Capsule 3 09/17/20 24 Active escitalopram oxalate (LEXAPRO) 10 mg tablet Take 1 Tablet (10 mg) by mouth daily. 100 Tablet 3 12/25/19 25 Active ALPRAZolam (XANAX) 0.25 mg tabletIndicati ons:Generalize d anxiety disorder Take 1 Tablet (0.25 mg) by mouth nightly as needed for Anxiety. 30 Tablet 2 12/25/19 25 Active celecoxib (CeleBREX) 200 mg capsule Take 1 capsule by mouth twice daily 60 Capsule 6 01/15/20 25 Active amLODIPine (NORVASC) 2.5 mg tablet Take 1 tablet by mouth once daily 100 Tablet 3 01/15/20 25 Active celecoxib (CeleBREX) 200 mg capsule Take 1 capsule by mouth twice daily 60 Capsule 3 05/26/20 24 025 Discontinued amLODIPine (NORVASC) 2.5 mg tablet Take 1 tablet by mouth once daily 90 Tablet 10/22/20 24 025 Discontinued Active Problems Patient Care Coordination No te Formatting of this note migh t be different from the original. 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 No ileitis or cecal inflammation seen. 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 05/29/2019 10/04/2021 Anal lesion 07/11/2013 12/02/2019 Encounters Date Type Department Care Team Description 01/24/2025 External Device Data ST[facility] ABSTRACTION Provider, Abstract 01/23/2025 External Device Data [facility] ABSTRACTION Provider, Abstract 01/20/2025 External Device Data [facility] ABSTRACTION Provider, Abstract 01/15/2025 Refill [place] [address] [address] Eber Pinedo MD 01/06/2025 External Device Data [facility] ABSTRACTION Provider, Abstract 12/29/2024 Orders Only [place] [address] [address] Provider, Abstract 12/29/2024 Abstract [place] [address] [place] [address] Eber Pinedo MD 12/29/2024 Abstract [place] [address] [address] [facility] [address] [place] [address] Eber Pinedo MD 12/25/2024 2:20 PM 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 Office Visit [place] [address] [place] [address] Eber Pinedo MD Essential hypertension, benign (Primary Dx); Other hyperlipidemia; Vitamin B12 deficiency (non anemic); Encounter for routine adult health examination with abnormal findings; Anxiety state; OAB (overactive bladder) 12/25/2024 Refill [facility] Internal Medicine [address] [address] Eber Pinedo MD Generalized anxiety disorder 12/22/2024 [facility] Internal Medicine [address] [address] Eber Pinedo MD Generalized anxiety disorder 12/22/2024 [facility] Internal Medicine [address] [address] Eber Pinedo MD 12/10/2024 External Device Data ST[facility] ABSTRACTION Provider, Abstract 12/09/2024 External Device Data [facility] ABSTRACTION Provider, Abstract 12/02/2024 External Device Data [facility] ABSTRACTION Provider, Abstract from Last 3 Months Immunizations Immunization Administration Dates Next Due (ADACEL/BOOSTRIX)(10 YR UP) TDAP VACCINE, 0.5ML, IM 12/02/2019 (TERA) COVID-19 VACCINE - EMERGENCY USE AUTHORIZATION, AD26,COV2S(PF) 0.5 ML IM SUSP 08/01/2021 (TDVAX)(7 YRS UP) TETANUS AN D DIPHTHERIA TOXOIDS, ADSORBED (2 LF OF TETANUS TOXOID AND 2 LF OF DIPHTHERIA TOXOID), 0.5ML (PF), IM 02/07/2010 Hepatitis B Vaccine 02/07/2010 INFLUENZA VACCINE QUADRIVALE NT 6 MOS UP PF IM 10/04/2021 INFLUENZA VACCINE TRIVALENT SPLIT VIRUS, (6 MOS UP), 0.25ML OR 0.5ML, IM 08/19/2024 Influenza Seasonal Unspecifi ed Formulation IM 09/19/2023,09/19/2022,08/19/2020,2018,09/19/2018,09/17/2017,08/19/2015,1 ,08/19/2013,08/15/2012 Family History Medical History Relation Name Comments Hypertension Father Ward Breast Cancer Maternal Aunt Lung Cancer Maternal Grandfather Haja Cancer Maternal Grandmother Zita Bladder Lung Cancer Maternal Grandmother Zita Stroke Maternal Grandmother Zita Anemia Mother [place] Breast Cancer Mother [place] High Cholesterol Mother [place] Hypertension Mother [place] Thyroid Disease Mother [place] Cancer Paternal Grandfather Wilmar Spinal Colon Cancer Paternal Grandfather Wilmar Breast Cancer Paternal Grandmother More Anemia Sister Dick Hypertension Sister Dick Relation Name Status Comments Father Ward Maternal Aunt Maternal Grandfather Haja Maternal Grandmother Zita Mother [place] Paternal Grandfather Wilmar Paternal Grandmother More [place] Social History Tobacco Use Types Packs/Day Years Used Date Smoking Tobacco: Never Passive Smoke Exposure: Never Smokeless Tobacco: Never Tobacco Cessation:Counseling Given: No Alcohol Use Standard Drinks/Week Comments No 0 (1 standard drink = 0.6 oz pur e alcohol) Comments No Sex and Gender Information Value Date Recorded Sex Assigned at Not on file Legal Sex Female 5:32 AM 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 Gender Identity Not on file Sexual Orientation Not on file Occupation Industry Job Start Date Job End Date Not on file Not on file Not on file Not on file Last Filed Vital Signs Vital Sign Reading Time Taken Comments Blood Pressure 110/70 12/25/2024 2:28 PM 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 Pulse 93 01/22/2024 2:59 PM 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 Temperature 36.7 C (98 F) 07/24/2023 3:13 PM CDT Respiratory Rate 16 06/03/2015 8:06 AM CDT Oxygen Saturation 98% 01/22/2024 2:59 PM 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 Inhaled Oxygen Concentration - - Weight 88.9 kg (196 lb) 12/25/2024 2:28 PM 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 Height 157.5 cm (5' 2 ) 12/25/2024 2:28 PM 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 Body Mass Index 35.85 12/25/2024 2:28 PM 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 Plan of Treatment Upcoming Encounters Date Type Department Care Team (Late st Contact Info) Description 09/24/2025 4:20 PM 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 Office Visit [facility] [place] [address] [place] [address] Eber Pinedo MD [address] [place] [address] [address] [place] [address] Health Maintenance Due Date Last Done Comments Pre-Diabetes and Diabetes Screening 1975 HEPATITIS B VACCINES (1 of 3 - 19+ 3-dose series) 02/21/1995 02/07/2010 FIT-DNA Q 3 years 02/21/2021 FIT/FOBT Q 1 year 02/21/2021 Flex Sig/CT Colonography Q 5 years 02/21/2021 COVID-19 Vaccine (2 - 2023-2 5 season) 2024 08/01/2021 BREAST CANCER SCREENING 07/24/2025 07/24/20, 05/04/2021, 01/02/2018, Additional history exists CERVICAL CANCER SCREENING 05/28/20262022 (Previously completed), 12/12/2017, 02/17/2011, Additional history exists DTAP/TDAP/TD VACCINES (2 - T d or Tdap) 12/02/2029 12/02/2019, 02/07/2010 COLORECTAL SCREENING 11/26/2033 11/26/2023, 12/16/19 Colorectal Cancer Screening 11/26/2033 INFLUENZA VACCINE Completed 08/19/2024, , 09/19/2022, Additional history exists Preventative Visit- Commercial Completed 0 12/25/2024, 01/22/2024, 01/15/2023, Additional history exists Medical Devices Implanted Type Area Air Drier Device Identifier Shelf Expiration Date Model / Serial / Lot L-Acsr Cortical Block [id number] Implanted:Qty : 1 on 06/02/2015 by Gary Renee MD at [facility] Bone N/A: Spine Cervical Anterior [employer]I BIOLOGIC[employer] 12/07/2017 [id number] / [id number] / [id number] L-Acsr Cortical Block [id number] Implanted:Qty : 1 on 06/02/2015 by Gary Renee MD at [facility] Bone N/A: Spine Cervical Anterior [employer] 11/03/2017 [id number] / [id number] / [id number] Plate Atlnts Vsn Elite 45mm [id number] - [id number] Implanted:Qty : 1 on 06/02/2015 by Gary Renee MD at [facility] Plate N/A: Spine Cervical Anterior MED[employer]- SOFAMOR DANEK [id number] / / Description:LOAD 33MAY 25, 2015 Putty Diana Dbm 2.5ml [id number] - [id number] Implanted:Qty : 1 on 06/02/2015 by Gary Renee MD at [facility] Putty N/A: Spine Cervical Anterior [employer] 09/30/2017 [id number] / [id number] / Screw Atlnts Sd Va 4.0x16mm [id number] - [id number] Implanted:Qty : 6 on 06/02/2015 by Gary Renee MD at [facility] Screw N/A: Spine Cervical Anterior [employer]- SOFAMOR DANEK [id number] / / Description:LOAD 33, MAY 25, 2015 Sealant Floseal W/ Adptr 10ml [id number] - [id number] Implanted:Qty : 1 on 06/02/2015 by Gary Renee MD at [facility] Sealant N/A: Spine Cervical Anterior TAYLOR- BIOS[employer]ENCE 08/18/2016 [id number] / / [id number] Procedures Procedure Name Priority Date/Time Associated Diagnosis Comments MAMMO 3D LOUIS SCREEN BILAT W OR WO CAD Routine 07/24/2024 10:15 AM CDT CERV/VAG CYTO SCREEN PAP RLFX HPV Routine 12/12/2017 10:43 AM 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 Encounter for gynecological examination without abnormal finding from Last 3 Months or Most Recently Relevant to Health Maintenance Results * MAMMO 3D LOUIS SCREEN BILAT W OR WO CAD (07/24/2024 10:15 AM CDT) Anatomical Region Laterality Modality Breast Bilateral Other us Abstract Provider MAMMO ORDERABLES Edited Result - Final * CERV/VAG CYTOPATH, THIN PREP IMAGR RFLX HPV (12/12/2017 10:43 AM 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) CLINICAL INFORMATION SEE COMMENT 12/14/2017 5:00 PM 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 [facility] Comment:Information not prov ided LAST MENSTRUAL PERIOD UNKNOWN 12/14/2017 5:00 PM 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 [facility] PREV PAP: SEE COMMENT 12/14/2017 5:00 PM 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 [facility] Comment:INFORMATION NOT PROV IDED PREV BX: SEE COMMENT 12/14/2017 5:00 PM 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 [facility] Comment:INFORMATION NOT PROV IDED SOURCE Endocervix 12/14/2017 5:00 PM 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 [facility] ADEQUACY: SEE COMMENT 12/14/2017 5:00 PM 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 [facility] Comment: Satisfactory for evaluation. Endocervical/transformation zone component present. Age and/or menstrual status not provided PAP INTERP SEE COMMENT 12/14/2017 5:00 PM 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 [facility] Comment:Negative for intraep ithelial lesion or malignancy. COMMENT SEE COMMENT 12/14/2017 5:00 PM 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 [facility] Comment: This Pap test has been evaluated with computer assisted technology. STOCK TAKER: SEE COMMENT 2017 5:00 PM 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 [facility] Comment: PCM, CT(ASCP) CT screening location: [place] [address] [address] [place] [address] REVIEW STOCK TAKER: SEE COMMENT 12/14/2017 5:00 PM 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 [facility] Comment: ABC, CT(ASCP) CT screening location: [place] [address] [address] [place] [address] Genital SWAB OF ENDOCERVIX / Unknown Collection / Unknown 12/12/2017 10:43 AM 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 12/12/2017 4:17 PM 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 Narrative [facility] - 12/14/2017 5:00 PM 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 Performing Organization Information: Site ID: Name: [facility] Address: [facility] Administration [place] [address] Director: Elpidio Thornton MD Myrna Santos MD PATHOLOGY/CYTOLOGY ORDERABLES Final Result [facility] from Last 3 Months or Most Recently Relevant to Health Maintenance Insurance [facility] CHOICE [id number] Advance Directives For more information, please contact: [phone] * Full Code (Latest Code Status on File) Date Activated Date Inactivated Comments 06/02/2015 1:50 PM 06/03/2015 12:29 PM * Full Code Date Activated Date Inactivated Comments 06/02/2015 6:20 AM 06/02/2015 1:50 PM * Full Code Date Activated Date Inactivated Comments 12/16/2014 6:56 AM 12/16/2014 1:09 PM Care Teams Warp Hanger Relationship Specialty Start Date End Date Eber Pinedo MD PCP - General 03/11/08
--- OUTSIDE RECORDS SUMMARY | 2025-02-01 14:59 | XMS_ITS | Encounter Summary ---
Author Organization [facility] Address 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 Gender Identity Not on file Sexual Orientation Not on file documented as of this encounter Plan of Treatment Upcoming Encounters Date Type Department Care Team (Late st Contact Info) Description 09/24/2025 4:20 PM SATELLITE DISH TECHNICIAN Office Visit [facility] Primary Care [address] [place] [address] Eber Pinedo MD [address] [place] [address] [address] [place] [address] documented as of this encounter Visit Diagnoses Not on filedocumented in this encounter Care Teams Boardmarker Relationship Specialty Start Date End Date Eber Pinedo MD PCP - General 03/11/08 documented as of this encounter
[2025-02-01 15:04] VITALS: BP 142/76; PULSE 100; RESP 16; TEMP 36.5; O2SAT 99
--- NOTE | 2025-02-01 15:29 | ED_ITS ---
HPI - Extremity Injury (Lower) General Chief Complaint: Extremity Injury, Lower Stated Complaint: Right Ankle Injury/Leg Swllen Time Seen by Provider: 02/01/25 15:20 Source: patient, RN notes reviewed and old records reviewed Mode of arrival: ambulatory Limitations: no limitations History of Present Illness HPI Narrative: 49 year old female who presents to [facility] care with complaints of yesterday she was just standing and her right foot just went out on her sideways, she reports that she didn't fall. Patient has swelling present to the lateral right ankle area and pain and bruising. Patient reports that she has iced her right lateral ankle MD complaint: ankle injury Onset (ago): day(s) (occurred yesterday afternoon) Severity: moderate Exacerbating factors: weight bearing and movement Treatments prior to arrival: cold therapy and other (elevated and Tylenol and ankle brace) Related Data Home Medications ?Medication ?Instructions ?Recorded ?Confirmed ?Last Taken ?Type amlodipine 2.5 mg tablet 2.5 mg PO DAILY 09/17/20 02/01/25 06/05/21 History Saccharomyces boulardii 250 mg 250 mg PO DAILY 04/22/21 02/01/25 06/03/21 History capsule (Daily Probiotic (S. boulardii)) cetirizine 10 mg tablet 10 mg PO DAILY 04/22/21 02/01/25 06/05/21 History multivitamin 1 tablet PO DAILY 04/22/21 02/01/25 06/03/21 History rizatriptan 5 mg tablet See Rx Instructions PO .COMPLEX 04/22/21 02/01/25 Unknown History escitalopram oxalate 10 mg tablet 10 mg PO DAILY 06/01/21 02/01/25 06/05/21 History celecoxib 200 mg capsule 200 mg PO BID 11/14/23 02/01/25 Unknown History alprazolam 0.25 mg tablet mg 02/01/25 Unknown History pregabalin 50 mg capsule mg 02/01/25 Unknown History rizatriptan 10 mg disintegrating mg 02/01/25 Unknown History tablet Allergies Allergy/AdvReac Type Severity Reaction Status Date / Time No Known Allergies Allergy Verified 02/01/25 15:01 Review of Systems Review of Systems: CONSTITUTIONAL: Denies fever, chills, or sweats. EYES: Denies visual changes, redness, or discharge. ENT: Denies rhinorrhea, congestion, sore throat, or otalgia. CARDIOVASCULAR: Denies chest pain, palpitations, or edema. RESPIRATORY: Denies cough or dyspnea. GASTROINTESTINAL: Denies abdominal pain, nausea, vomiting, or diarrhea. GENITOURINARY: Denies dysuria or hematuria. SKIN: Denies rash or itching. MUSCULOSKELETAL: Denies back pain,reports pain, bruising, swelling to right lateral ankle , or myalgia. NEUROLOGIC: Denies headache, numbness, or weakness. PSYCHIATRIC: reports history of anxiety or depression. All systems reviewed & are unremarkable except as noted in HPI and below PMFSH Past Medical History Medical History Colon cancer screening IBS (irritable bowel syndrome) Epigastric pain Depression Anxiety Fibromyalgia Hypertension Migraines Anemia Seasonal allergies Surgical History Surgical History H/O Spinal surgery cervical fusion Family History Family History Father Hypertension Mother Breast cancer Hypertension Disorder of thyroid Sibling Heart disease Grandparent Breast cancer Social History Social History Smoking status: Never smoker Alcohol intake: current Alcohol use details: occasional use Substance use: never Substance use type: does not use Living arrangements: with family Occupation/Education: occupation Gender identity (if verbalized by the patient): Female Spiritual care concerns: No Comments At time of signature, agree with nursing past medical, surgical, social and family history. There is no relevant family history pertinent to the presenting complaint Exam Narrative: GENERAL: Well-appearing, well-nourished, and in some acute distress related to right ankle pain. HEAD: Normocephalic, atraumatic. EYES: PERRLA and EOMI. ENT: Nares clear, no rhinorrhea or epistaxis. Mucous membranes moist.TM's normal throat pink with no swelling NECK: Supple. no lymphadenopathy CHEST: Clear to auscultation. No respiratory distress.SAO2 99% on room air HEART: Regular rate and rhythm. No murmur heard. Normal peripheral pulses. ABDOMEN: Soft, nontender, nondistended, normal active bowel sounds. EXTREMITIES: Normal range of motion. No edema.Exception noted to right lateral ankle with pain bruising and swelling noted with increased pain with movement and micah bearing. strong right pedal pulse, sensation intact. SKIN: Warm, dry, no rash. NEURO: No focal deficits. Alert and oriented x3. Course Course Emergency Course: Patient is aware of diagnosis, understands and agrees to treatment plan.? Anticipatory guidance given.? Patient agrees to follow-up as directed and is aware of reasons to seek care at the emergency department. Portions of this record may have been created with voice recognition software Level of Care: Express Care Visit Vital Signs Vital signs: Vital Signs Temperature 36.5 C 02/01/25 15:04 Pulse Rate 100 02/01/25 15:04 Respiratory Rate 16 02/01/25 15:04 Blood Pressure 142/76 H 02/01/25 15:04 Pulse Oximetry 99 02/01/25 15:04 Oxygen Delivery Room Air 02/01/25 15:04 Temperature 36.5 C 02/01/25 15:04 Pulse Rate 100 02/01/25 15:04 Respiratory Rate 16 02/01/25 15:04 Blood Pressure 142/76 H 02/01/25 15:04 Pulse Oximetry 99 02/01/25 15:04 Oxygen Delivery Room Air 02/01/25 15:04 Reviewed MDM - Extremity Injury (Lower) Differential Diagnosis Differential diagnosis: Likely ankle sprain and strain, ankle fracture and other (acute swelling pain and bruising of right lateral ankle) Medical Records Attestation: I reviewed the patient's medical records. Imaging Data Attestation: I personally reviewed and interpreted this imaging study as follows: My impression: No acute osseous findings in the right ankle, some mild scattered degenerative changes, anterolateral soft tissue swelling Radiologist's impression: [facility] [place] [address] [place] [address] XRay Report Signed Patient: Noreen Pastor : 1975 MR#: [id number] Age: 49 Acct:[id number] Loc: [facility] ADM Date: 02/01/25Attending Dr: Ordering Physician: Prema Del Angel APRN Date of Service: 02/01/25 Procedure(s): XR ankle RT min 3V Accession Number(s): [id number] cc: Khris, Eber Dumont MD; Prema Del Angel KIYA~ EXAM: XR ankle RT min 3V DATE: 02/01/2025 15:38 HISTORY: inversion injury,swelling bruising, LAT . COMPARISON: None available. FINDINGS: Normal mineralization. No fracture or dislocation. No lytic or blastic lesion. Mild scattered degenerative changes. No erosion or periosteal change. Anterolateral ankle soft tissue swelling. IMPRESSION: No acute osseous finding in the right ankle. Reviewed, dictated and finalized at location K. Please be advised this is a medical document. It is intended for [id number] communication. It is written in medical language and may contain unfamiliar abbreviations or verbiage. Medical documents are intended to carry relevant information, facts as evident, and the clinical opinion of the practitioner at the time of the encounter. This report may have been done utilizing a voice recognition system. Attempts have been made to correct errors. However, there may be uncorrected grammatical, spelling, and recognition errors present. The file time of this note does not necessarily represent the time of service. Dictated By: Shahbaz Teran MD 02/01/25 1639 Signed By: <Electronically signed by Shahbaz Teran MD in OV> Critical Care Time Critical Care Time Critical Care Time: No Discharge Plan Discharge Clinical Impression: Right ankle strain Qualifiers: Encounter type: initial encounter Qualified Code(s): S96.911A - Strain of unspecified muscle and tendon at ankle and foot level, right foot, initial encounter Swelling of ankle Qualifiers: Laterality: right Qualified Code(s): M25.471 - Effusion, right ankle Patient Disposition: Home, Self-Care Condition: Stable Instructions: Antibiotic Form, Swollen Ankle Joint (ED), Ankle Strain (ED) Additional Instructions: Elastic wrap or orthopedic splint as directed for comfort for the next 5-7 days Tylenol arthritis strength every 8 hours for pain control Follow-up with orthopedic surgeon if no improvement in [address] Naqvi is ortho transportation planning technician, Follow-up with PCP if further problems or concerns Ice to the area 20-30 minutes 4-6 times a day Elevate above heart If your symptoms persist, change or worsen significantly before you can contact your personal physician then please, without delay, go to the emergency department for further evaluation. Follow-up with PCP in 7-10 days or sooner if needed Follow up with PCP soon in regards to your blood pressure which is elevated above threshold for referral. Blood pressure above 120/80 may indicate pre- hypertension. 142/76 pain medication as ordered for acute pain Patient Language: Belarusian Prescriptions: New acetaminophen-codeine 300-30 mg tablet 1 tablet PO Q6H PRN (Reason: pain) Qty: 10 0RF No Action alprazolam 0.25 mg tablet rizatriptan 10 mg tablet,disintegrating pregabalin 50 mg capsule cetirizine 10 mg tablet 10 mg PO DAILY multivitamin Tablet 1 tablet PO DAILY Saccharomyces boulardii [Daily Probiotic (S. boulardii)] 250 mg capsule 250 mg PO DAILY rizatriptan 5 mg tablet See Rx Instructions PO .COMPLEX Rx Instructions: take 1 tablet at onset of headache; if no relief, may repeat 1 tablet after at least 2 hrs PO amlodipine 2.5 mg tablet 2.5 mg PO DAILY escitalopram oxalate 10 mg tablet 10 mg PO DAILY celecoxib 200 mg capsule 200 mg PO BID dicyclomine 10 mg capsule 10 mg PO TID PRN (Reason: IBS) Qty: 90 11RF omeprazole 40 mg capsule,delayed release(DR/EC) 40 mg PO .daily Qty: 30 11RF Follow-up/Referrals: Khris,Eber Dumont MD [Primary Care Provider] - Time of Disposition: 16:55 Quality Deepa Coma Scale Eyes: Open Verbal: Oriented and Alert Motor: Follows Commands Deepa Coma Total Score: 15
--- NOTE | 2025-02-01 16:58 | PC.NURSE ---
aware of results. specification writer discussed with pt.
== END 2025-02-01 17:06 | disposition home or self-care (01) ==
PROVIDERS: Emergency Provider Registered Nurse; PCP Internal Medicine
DX: S96.912A Strain of unspecified muscle and tendon at ankle and foot level, left foot, initial encounter (principal); X50.9XXA Other and unspecified overexertion or strenuous movements or postures, initial encounter; M25.471 Effusion, right ankle; I10 Essential (primary) hypertension; M79.7 Fibromyalgia; F41.9 Anxiety disorder, unspecified; F32.A Depression, unspecified
CPT/HCPCS: 73610; 99213; G0463